=== PATIENT | male | born 1965 | race Caucasian/White ===

== ENCOUNTER 2025-05-11 09:59 | Outpatient (CLI) | payer BC, SELFPAY ==
--- NOTE | ~2025-05-11 | XR_ITS ---
EXAM/PROCEDURE: XR ribs LT 2V HISTORY: ANTERIOR LT SIDED RIB PAIN AFTER POP YESTERDAY COMPARISON: 2010 TECHNIQUE: 4 radiographic images FINDINGS: There are no rib fractures or destructive lesions seen. IMPRESSION: No acute findings. Reviewed, dictated and finalized at location A. ESS SUPERVISOR IMPRESSION: No acute findings.
== END 2025-05-11 10:00 | disposition home or self-care (01) ==
PROVIDERS: PCP Internal Medicine; Visit Provider Nurse Practitioner
DX: R07.89 Other chest pain (principal)
CPT/HCPCS: 71100